=== PATIENT | male | born 1960 | race Caucasian/White ===

== ENCOUNTER 2020-12-08 07:27 | Day surgery (SDC) | payer MEDICARE, BC ==
[~2020-12-08] VITALS: Ht 195.6 cm; Wt 136.4 kg
[2020-12-08 08:09] LABS: INR 1.25 (0.85-1.17); PROTIME 14.5 SECONDS (11.6-15.0)
[2020-12-08 08:11] LABS: BASOPHILS 0.4 % (0-2); EOSINOPHILS 1.9 % (0-7); HEMATOCRIT 34.7 % (42.0-54.0); IMMATURE GRANULOCYTES 0.2 % (0-5); LYMPHOCYTE ABS# 0.97 10x3/uL (1.32-3.57); LYMPHOCYTES 10.1 % (15-50); MCHC 31.7 g/dL (31.0-37.0); MCV 85.3 fL (80.0-100.0); MEAN PLATELET VOLUME 9.1 fL (7.4-10.4); MONOCYTES 8.9 % (2-11); NEUTROPHIL ABS# 7.57 10x3/uL (1.78-5.38); NEUTROPHILS 78.5 % (40-80); PLATELET COUNT 338 10x3/uL (130-400); RBC 4.07 10x6/uL (4.20-6.10); RDW 16.5 % (11.5-14.5); WBC 9.6 10x3/uL (4.8-10.8)
[2020-12-08 08:15] LABS: ANION GAP 16.7 mmol/L (8-16); CALCIUM 8.7 mg/dL (8.5-10.1); CARBON DIOXIDE 23.5 mmol/L (21.0-32.0); CREATININE - SERUM 5.8 mg/dL (0.6-1.3); POTASSIUM - SERUM 4.2 mmol/L (3.5-5.1)
[2020-12-08] MEDS ORDERED: LIPITOR20 MG PO (09:32)
[2020-12-08] MEDS ORDERED: NORVASC5 MG PO (09:32)
[2020-12-08] MEDS ORDERED: ELIQUIS2.5 MG PO (09:32)
[2020-12-08] MEDS ORDERED: TOPROL XL50 MG PO (09:33)
[2020-12-08] MEDS ORDERED: NOVOLOG100 UNIT/1 SC (09:33)
[2020-12-08] MEDS ORDERED: LEVEMIR FL100 UNIT/1 SC (09:33)
[2020-12-08] MEDS ORDERED: PROTONIX40 MG PO (09:34)
[2020-12-08] MEDS ORDERED: VISTARIL50 MG PO (09:34)
[2020-12-08] MEDS ORDERED: COZAAR25 MG PO (09:34)
[2020-12-08] MEDS ORDERED: LASIX80 MG PO (09:35)
[2020-12-08] MEDS ORDERED: FLOMAX0.4 MG PO (09:35)
[2020-12-08] MEDS ORDERED: CYMBALTA30 MG PO (09:35)
[2020-12-08] MEDS ORDERED: LEVOXYL25 MCG PO (09:35)
[2020-12-08 09:43] VITALS: BP 143/71; BMI 35.6
--- NOTE | 2020-12-08 13:40 | NUR ---
PT ARRIVED TO OR WITH EYEGLASSES ON. REMOVED FROM PATIENT AND REMAINED WITH BOXING INSPECTOR UNTIL TRANSFER TO PACU. NOTED. ROCHELLE LAM
--- NOTE | 2020-12-08 15:27 | NUR ---
PT STATES 7/10 PAIN. BUPRENEX GIVEN AND ICE PACK PROVIDED WITH ZOFRAN.
--- NOTE | 2020-12-08 16:16 | NUR ---
9284 PT REQUEST TO STAY OVER NIGHT. PAIN CONTROL. AND HE LIVES FAR AWAY
--- NOTE | 2020-12-08 16:57 | NUR ---
1610 MEDICATED FOR PAIN. 1610 SL LOCKED PTS IV FLUSHED WELL
--- NOTE | 2020-12-08 17:01 | NUR ---
1700 REPORT GIVEN TO SARINA BYRD. ROOM DIRTY BUT STAT CLEAN APPLIED
--- NOTE | 2020-12-08 17:11 | NUR ---
1710 DR DUNCAN NOTIFIED OF PTS NEW ROOM AND HE DECIDED TO STAY OVERNIGHT
[2020-12-08 18:16] VITALS: BP 132/71; Ht 195.6 cm; Wt 136.4 kg
--- NOTE | 2020-12-08 19:15 | NUR ---
RECEIVED REPORT, WILL ASSUME CARE OF PT, ASKING FOR PAIN MEDS, WILL PROVIDE WHEN ITS TIME, FAMILY AT BEDSIDE, BED IS LOW, SRX2, CALL LIGHT IN REACH, WILL CONTINUE PLAN OF CARE
[2020-12-08 20:09] VITALS: BP 135/72
[2020-12-09 01:28] VITALS: BP 114/60
--- NOTE | 2020-12-09 02:55 | NUR ---
I have reviewed this patient and I concur with the Shift Assessment completed by the Licensed Practical Nurse today this shift.
[2020-12-09 05:29] VITALS: BP 129/63
--- NOTE | 2020-12-09 06:37 | NUR ---
I have reviewed this patient and I concur with the Shift Assessment completed by the Licensed Practical Nurse today this shift.
[2020-12-09 08:00] VITALS: BP 130/57
[2020-12-09 11:00] VITALS: BP 129/50
--- NOTE | 2020-12-09 12:33 | NUR ---
I have reviewed this patient and I concur with the Shift Assessment completed by the Licensed Practical Nurse today this shift.
--- NOTE | 2020-12-09 15:13 | NUR ---
PATIENT SITTING SEMI FOWLERS AAOX4, RESP EVEN AND NON LABORED, NO S/S OF DISTRESS, MEDICATIONS ADMINISTERED, PATIENT STATED HE WAS ITCHING AND NEEDS BENADRYL, ORDER RECIEVED AND MEDICATION ADMINSITERED, DIALYSIS TOOK PATIENT TO DIALYSIS, NO FURTHER NEEDS AT THIS TIME
[2020-12-12 10:12] LABS: RNP ANTIBODY <0.2 AI (0.0-0.9); SMITH ANTIBODY <0.2 AI (0.0-0.9)
--- NOTE | 2020-12-19 18:26 | OP ---
PATIENT NAME: LUISA ROWE MEDICAL RECORD: [id number] :56 LOCATION:D.[facility]ER[facility] [place] ADMISSION DATE: SURGEON: АЛЕКСАНДР CABALLERO MD DATE OF OPERATION: 12/08/2020 REFERRING PHYSICIAN: Christoph Contreras MD ANESTHESIA: General endotracheal per SLEEPING ROOM CLEANER. SURGEON: Александр Caballero MD PREOPERATIVE DIAGNOSIS: End-stage renal disease and dependence on hemodialysis. POSTOPERATIVE DIAGNOSIS: End-stage renal disease and dependence on hemodialysis. OPERATION PERFORMED: Laparoscopic implantation of a peritoneal dialysis catheter and subcutaneous extension for presternal exit. PREOPERATIVE NOTE: Mr. Rowe is a quite obese 60-year-old gentleman with a colostomy on the left side of the abdomen and a suprapubic catheter and a intrathecal medication pump in the right lower quadrant of the abdomen. I am going to implant a peritoneal dialysis catheter for him with a presternal extension, so that he can do PD at home. DESCRIPTION OF PROCEDURE: Under general endotracheal anesthesia, the patient was placed in supine position and prepped and draped in a sterile manner and with the colostomy completely isolated from the operative field as was also the suprapubic catheter. I stood on the patient's right side. I chose a Merit PD catheter, a 3 cuff coiled catheter with extension. I measured with the catheter and stencil from the level of the umbilicus to the symphysis pubis and then more or less made an educated guess where to make the incision, so that the deeper cuff would be appropriately placed. A vertically oriented incision was made and carried down to the anterior rectus sheath a couple of centimeters right of the midline and just above the umbilicus. The rectus sheath was exposed and a pursestring suture of 0 Vicryl placed. I then infiltrated the rectus sheath with 0.25% Marcaine with epinephrine. I then entered the abdomen with a 5 mm XL Optiview port or trocar in the right upper quadrant. I achieved hemostasis with carbon dioxide and then inserted a 30-degree angled 5-mm laparoscope. One additional 5-mm port was required in the right lateral abdomen. I then used a radially expanding 8 mm laparoscopic port to create an intrarectus tunnel and inserted it through an opening in the anterior rectus sheath and angled it while watching with the laparoscope until it entered the peritoneum. I then inserted the catheter with the blue stripe on the posterior aspect. The deep cuff was placed just underneath the anterior rectus sheath and the pursestring suture was tied. The coiled business end of the catheter came to rest appropriately within the pelvis and I was happy with the positioning. I then made the appropriate measurements and made another incision vertically on the upper abdomen to the right of the midline and then had small incision along the right lateral margin of the sternum just below the sternal notch. The catheter was placed in a long tunnel as tight as possible and as close as possible to the anterior rectus sheath. It was then shortened. The second catheter was placed in a tunnel from the parasternal incision downward to the abdominal incision and that catheter was appropriately shortened. The catheters were then attached to each other with a titanium stent and then this was further held in place with two 2-0 OPERATIVE REPORT [id number] LUISA ROWE Prolene ties. The catheter was then placed in a subcutaneous tunnel, which passed laterally and then downward on the right side for an exit, had an appropriate level above the breast. The Dacron felt cuffs were positioned very nicely in the superficial tunnel. The catheter was then connected to a transfer device and then the abdomen was filled with 1000 cc of saline. The bag was placed on the floor and the saline siphoned out very nicely with the patient in slight reverse Trendelenburg position. The catheter was then heparin locked. The incisions were irrigated with saline and 0.25% Marcaine and closed in layers with interrupted inverted 3-0 Vicryl and running intracuticular 4-0 Stratafix and Dermabond glue. The incisions were dressed with Maxorb AG, Tegaderm, Cavilon skin prep. The catheter at the exit site was dressed with a Biopatch and then coiled beneath a 4 x 4 bordered gauze dressing. At this point, the patient was awakened and taken to recovery room. Blood loss during the operation estimated at 5 cc, none was replaced. Sponges, instruments, and needles were accounted for. No surgical specimen was submitted for histopathology. Intraoperative findings including the anterior abdominal wall were actually very thin with the intra-abdominal fat being predominant. PLAN: The patient will be discharged to home today if pain control was adequate and he is tolerating liquids, etc. He will need to start PD training and have his PD catheter flushed soon as possible. I will try to get him back in my office to see me next week or perhaps early the following week. He is to meanwhile keep the dressing intact and dry. Continue his same home medications and diet. TRANSINT:[id number] Voice Confirmation ID: [id number] DOCUMENT ID: [id number] АЛЕКСАНДР CABALLERO MD at 1826 CC: CHRISTOPH CONTRERAS MD [id number] DICTATION DATE: 12/18/201628 GEODESY TEACHER: 12/18/202230 [facility] 12/09/20 [id number] [place] [address]
== END 2020-12-09 17:10 | disposition home or self-care (01) ==
LOC: D.OPS 07:27 → D.M2 07:27 → D.OPS 09:00 → D.M2 18:06 → D.OPS 12-09 17:10
PROVIDERS: Surgery; ATTEND Internal Medicine Nephrology
DX: N18.6 End stage renal disease (principal); Z99.2 Dependence on renal dialysis; I48.91 Unspecified atrial fibrillation; I10 Essential (primary) hypertension; E11.9 Type 2 diabetes mellitus without complications; E07.9 Disorder of thyroid, unspecified